=== PATIENT | male | born 1960 | race Hispanic/Latino ===

== ENCOUNTER 2020-03-22 08:30 | Outpatient (CLI) | payer BC, OTHER ==
--- NOTE | 2020-03-22 13:05 | Treadmill Report ---
STRESS EKG REPORT This being done on a 59-year-old gentleman for evaluation of decreased exercise tolerance. The patient has recent knee swelling and his activities are limited. The patient's baseline EKG showed sinus rhythm within normal limits at rate of 69 beats per minute. The patient exercised for 9 minutes on standard [place] protocol attained a maximal heart rate of 156 beats per minute. The patient's resting blood pressure is 134/82 and maximal blood pressure was 190/89. Test was stopped due to generalized fatigue. No chest pain. No arrhythmia noted. At peak heart rate, EKG showed very mild upgoing ST depressions, which reverted back to normal immediately after stopping the test. FINAL IMPRESSION: 1. Good exercise tolerance. 2. Negative for angina, negative for ischemia. 3. No arrhythmia. 4. Hypertensive blood pressure response. JOB# [id number] JOAQUIN/MARIELA SILVA
== END 2020-03-22 08:31 | disposition home or self-care (01) ==
LOC: CARD 08:30
PROVIDERS: ATTEND Internal Medicine
DX: I10 Essential (primary) hypertension (principal)
CPT/HCPCS: 93017